=== PATIENT | female | born 2000 | race Caucasian/White ===

== ENCOUNTER 2022-02-17 10:19 | Emergency (ER) | payer BC, SELFPAY ==
[2022-02-17 10:20] VITALS: BP 146/83; PULSE 82; RESP 16; TEMP 36.6; O2SAT 99; BMI 33.5
--- NOTE | 2022-02-17 11:08 | ED.VIS.GI ---
HPI HPI - GI History of Present Illness Chief Complaint: Abd Pain Informant: patient Abdominal Pain/Flank Pain Onset: Today Context: Gradual Onset Timing: Waxes and wanes Quality: Cramping Location: RLQ and LLQ Worsened by: - (Standing quickly) Relieved by: Nothing Nausea/Vomiting/Emesis GI Symptom: Negative for Nausea or Vomiting Diarrhea/Melena/Hematochezia GI Symptom: Positive for Diarrhea and Hematochezia Stool Quality: Positive for BRB per rectum (Blood streaks when she wipes) Associated Symptoms Associated Symptoms: Negative for Dysuria, Frequency or Hematuria Narrative Narrative: Patient presents with abdominal pain that began today. Patient states it has been constant. Patient states it came on gradually. Patient states she is lactose intolerant and ate some cheese 2 days ago. Patient states her pain is mainly over the lower abdomen but is diffuse. Patient states it is worse when she stands up quickly. Patient denies any nausea or vomiting. Patient admits to diarrhea but states it is chronic. Patient states she was having some blood in her stools. Patient states this is mild and just on the toilet paper. Patient states her last menstrual period was approximately 2 weeks ago. Patient denies any urinary complaints. [facility] Medical History Depression Pre-diabetes Home Medications dicyclomine 10 mg capsule 20 mg PO TIDAC #20 CAPSULES 02/17/22 [Rx Last Taken Unknown] fluoxetine 60 mg tablet 60 mg PO DAILY 02/17/22 [History Last Taken Unknown] metformin 02/17/22 [History Last Taken Unknown] methylphenidate HCl 54 mg tablet,extended release 24 hr (Concerta) 54 mg PO DAILY 02/17/22 [History Last Taken Unknown] ondansetron 4 mg disintegrating tablet 4 mg PO Q8H PRN PRN Nausea #10 tabs 02/17/22 [Rx Last Taken Unknown] Allergy/AdvReac Type Severity Reaction Status Date / Time No Known Allergies Allergy Verified 02/17/22 10:22 Surgical History Hx of tonsillectomy Social History Smoking Status: Never smoker ROS ROS ED Constitutional Constitutional ED: Denies chills or fever(s) Eyes Eyes: Denies blurry vision or change in vision ENT ENT ED: Denies rhinorrhea or sore throat Cardiovascular Cardiovascular: Denies chest pain or palpitations Respiratory/Chest Respiratory/Chest: Denies cough or dyspnea Gastrointestinal Gastrointestinal: Reports abdominal pain and diarrhea; Denies nausea or vomiting Genitourinary Genitourinary ED: Denies dysuria or hematuria Musculoskeletal Musculoskeletal: Denies back pain or neck pain Integumentary Denies abscess or rash Neurologic Neurologic: Denies headache(s) or weakness Allergic/Immunologic Allergic/Immunologic ED: Denies mouth swelling or urticaria EXAM Physical Exam Const Vital Signs: 02/17/22 10:20 Temperature 97.9 F Temperature Source Temporal Pulse Rate 82 Respiratory Rate 16 Blood Pressure 146/83 H Blood Pressure Mean 104 Pulse Ox 99 Oxygen Delivery Method Room Air Positive well nourished and well developed General Appearance ED: well developed HEENT Reports moist mucous membranes Neck supple and no JVD Resp normal respiratory effort and clear to auscultation bilaterally Cardio regular rate, regular rhythm and no murmurs GI normal to inspection, nondistended, normoactive bowel sounds Palpation: soft and tender LLQ, RLQ and suprapubic; Negative for guarding or rebound tenderness present Extremity normal to inspection General Extremety ED: Negative for edema or tenderness General Extremity: Negative for edema Neuro oriented x3, CN's II-XII intact bilaterally and no sensory deficits noted Sensorium / Orientation: alert Motor Exam: strength 5/5 throughout Psych mental status grossly normal Skin no rashes or lesions noted MDM MDM MDM Narrative Medical decision making narrative: Patient does not want any blood work or IV started. Patient states she wants no needles. Patient was given a dose of Zofran and Bentyl. Patient was given prescriptions for the same. Patient was instructed to drink plenty of fluids. Patient was instructed to follow-up with her primary care physician in 5 to 7 days. Patient understood and was agreeable with the plan. All questions were answered. Discharge Plan Triage Chief Complaint: Abd Pain ED Provider: Mainor Zeng Dx/Rx/DC Orders Clinical Impression: Abdominal pain, Obesity (BMI 30.0-34.9) Instructions: ED Abdominal Pain Unkn Cause Fem Prescriptions: New ondansetron [ondansetron] 4 mg tablet,disintegrating 4 mg PO Q8H PRN PRN (Reason: Nausea) Qty: 10 0RF dicyclomine 10 mg capsule 20 mg PO TIDAC Qty: 20 0RF No Action methylphenidate HCl [Concerta] 54 mg Tablet Extended Release 24hr 54 mg PO DAILY fluoxetine 60 mg Tablet 60 mg PO DAILY metformin Primary Care Provider: PACO CONTE Referrals[facility] Doctor,Out of [Non-Staff] -
[2022-02-17] MEDS: Dicyclomine 10 MG Capsule 20 MG PO (11:19)
[2022-02-17] MEDS: Ondansetron ODT 4 MG Tablet PO (11:19)
== END 2022-02-17 11:58 | disposition home or self-care (01) ==
PROVIDERS: Emergency Provider Emergency Medicine; Visit Provider Emergency Medicine
DX: R10.30 Lower abdominal pain, unspecified (principal); E66.9 Obesity, unspecified; F32.A Depression, unspecified; Z79.899 Other long term (current) drug therapy
CPT/HCPCS: 99283